=== PATIENT | male | born 1985 | race Caucasian/White ===

== ENCOUNTER 2018-06-02 05:47 | Emergency (ER) | payer OTHER ==
[~2018-06-02] VITALS: Ht 185.4 cm; Wt 93.0 kg
[~2018-06-02 05:47] MED LIST: BACTRIM DS TAB1 EACH PO; DARVOCET-N 1001 EACH PO; E-MYCIN250 MG PO; FLEXERIL PO; NAPROXEN 500MG500 MG PO; NOHOMEMEDICATIONS; NORCO 5-325 TA1 EACH PO; ONDANSETRON HCL4 M2 PO
[2018-06-02] MEDS ORDERED: ACETAMINOPHEN-1 EAC1 PO (06:37)
[2018-06-02] MEDS ORDERED: IBUPROFEN 800800 M1 PO (06:37)
[2018-06-02 06:50] VITALS: BP 119/71
== END 2018-06-02 06:52 | disposition home or self-care (01) ==
LOC: M.ERS 05:47
DX: S60.222A Contusion of left hand, initial encounter (principal); W23.0XXA Caught, crushed, jammed, or pinched between moving objects, initial encounter; Y93.89 Activity, other specified; Y92.89 Other specified places as the place of occurrence of the external cause; Y99.8 Other external cause status; J45.909 Unspecified asthma, uncomplicated; Z88.6 Allergy status to analgesic agent